=== PATIENT | female | born 1965 | race Caucasian/White ===

== ENCOUNTER 2025-10-12 08:08 | Day surgery (SDC) | payer OTHER ==
[2025-10-10 10:26] VITALS: BMI 29.2
[2025-10-12] MEDS ORDERED: AFRIN NASAL MIST 15 ML BOT ONE (09:14)
[2025-10-12] MEDS ORDERED: Lidocaine 1% w/Epinephrine 1:100K 20 ML VIAL ONE (10:29)
[2025-10-12] MEDS ORDERED: Oxymetazoline HCl 0.05% (15 ML) ONE (10:29)
[2025-10-12] MEDS ORDERED: HYDROcodone/Acetaminophen 5/325 mg Tablet ONE (12:06)
== END 2025-10-12 13:05 | disposition home or self-care (01) ==
LOC: CSHSDC 08:08
PROVIDERS: ATTEND Otolaryngology Plastic Surgery within the Head & Neck
DX: J32.4 Chronic pansinusitis (principal); J34.89 Other specified disorders of nose and nasal sinuses; H21.541 Posterior synechiae (iris), right eye; F32.A Depression, unspecified; F41.9 Anxiety disorder, unspecified; Z87.891 Personal history of nicotine dependence; Z90.710 Acquired absence of both cervix and uterus; Z91.041 Radiographic dye allergy status; Z79.899 Other long term (current) drug therapy
CPT/HCPCS: 88305; 88311; J0166; J3301